=== PATIENT | male | born 1975 | race Caucasian/White ===

== ENCOUNTER 2024-09-22 07:34 | Day surgery (SDC) | payer BC ==
[~2024-09-22 07:34] MED LIST: Propofol 200 MG/20 ML SDV ONE; fentaNYL 100 MCG/2 ML SDV ONE
[2024-09-22] MEDS: Lactated Ringers 1,000 ML IV SCH (08:32)
== END 2024-09-22 10:20 | disposition home or self-care (01) ==
LOC: JP.SDS 07:34
PROVIDERS: ATTEND Surgery
DX: K31.89 Other diseases of stomach and duodenum (principal); K26.9 Duodenal ulcer, unspecified as acute or chronic, without hemorrhage or perforation; K22.89 Other specified disease of esophagus
CPT/HCPCS: 00731; 43239; J2704; J3010; J7120; 88305; 88312; 88341; 88342